=== PATIENT | female | born 1935 | race Two or more races ===

== ENCOUNTER 2024-02-04 19:04 | Inpatient (IN) | payer OTHER, MEDICARE, MEDICAID ==
[~2024-02-04] VITALS: Ht 152.4 cm; Wt 61.0 kg
[2024-02-04] MEDS: CEFEPIME 2GM/50ML NS 50 ML IV ONE (20:21)
[2024-02-04] MEDS: SODIUM CHLORIDE 0.9% 1,000 ML IV ONE (20:22)
[2024-02-04] MEDS: ACETAMINOPHEN IV 1000 MG/100ML (10MG/ML) IV STA (20:23)
[2024-02-04] MEDS: ONDANSETRON HCL 4 MG/2 ML VIAL IV ONE (20:47)
[2024-02-04 20:51] LABS: Basophils # (auto) 0.1 10 ^3/uL (0-0.2); Basophils % (auto) 0.4 % (0.0-2.0); Eosinophils # (auto) 0 10 ^3/uL (0-0.8); Hematocrit 37.1 % (36.0-46.0); Hemoglobin 11.5 g/dL (12.2-16.2); Lymphocytes # (auto) 1.7 10 ^3/uL (0.4-5.4); Lymphocytes % (auto) 11.6 % (10.0-50.0); Mean Corpuscular Hemoglobin 30.3 pg (28.0-32.0); Mean Corpuscular Volume 97.8 fL (80.0-100.0); Monocytes # (auto) 0.8 10 ^3/uL (0-1.3); Monocytes % (auto) 5.9 % (0.0-12.0); Neutrophils # (auto) 11.7 10 ^3/uL (1.6-8.6); Neutrophils % (auto) 82.1 % (37.0-80.0); Nucleated Red Blood Cells % 0.4 %; Platelet Count (auto) 202 10^3/uL (140-450); Red Cell Distribution Width 17.6 % (11.8-14.3); White Blood Cell 14.3 10^3/uL (4.4-10.8)
[2024-02-04 20:57] LABS: Chloride 120 mmol/L (98-107); Potassium 3.5 mmol/L (3.5-5.1); Sodium 154 mmol/L (136-145)
[2024-02-04 20:58] LABS: Anion Gap 13 (5-15); Carbon Dioxide 21 mmol/L (20-31)
[2024-02-04 20:59] LABS: Calcium 7.8 mg/dL (8.7-10.4)
[2024-02-04 21:03] LABS: BUN/Creatinine Ratio 33.7 (10.0-20.0); Glucose 153 mg/dL (74-106)
[2024-02-04 21:11] LABS: Blood Urea Nitrogen 115 mg/dL (9-23)
[2024-02-04 22:01] LABS: Urine Bacteria None Seen /hpf (None Seen)
[2024-02-04 22:18] LABS: Urine Blood TRACE /uL (Negative); Urine Clarity Ex.Turbid (Clear); Urine Color Light-Orange (Yellow); Urine Mucus FEW (None Seen); Urine Protein, UAD 3+ (Negative); Urine Specific Gravity 1.018 (1.001-1.035); Urine Urobilinogen 6 mg/dL (Negative); Urine WBC 49 /hpf (0 - 5); Urine pH 6.5 (5.0-9.0)
[2024-02-04] MEDS ORDERED: ONDANSETRON HCL 4 MG/2 ML VIAL IV PRN (23:45)
[2024-02-04] MEDS ORDERED: NITROGLYCERIN 0.4 MG SL TAB SL PRN (23:45)
[2024-02-04] MEDS ORDERED: ACETAMINOPHEN 325 MG TAB PO PRN (23:45)
[2024-02-04] MEDS ORDERED: MORPHINE SULFATE INJ 2 MG/ml SYRG IV PRN (23:45)
[2024-02-04 23:50] VITALS: PULSE 74; O2SAT 90
[2024-02-05] MEDS: SODIUM CHLORIDE 0.9% 1,000 ML IV ONE
[2024-02-05] MEDS: ENOXAPARIN SOD 100 MG/1 ML SYRINGE SC ONE (01:26)
[2024-02-05 04:36] LABS: Basophils # (auto) 0 10 ^3/uL (0-0.2); Eosinophils # (auto) 0 10 ^3/uL (0-0.8); Eosinophils % (auto) 0.1 % (0.0-7.0); Hemoglobin 11.7 g/dL (12.2-16.2); Lymphocytes # (auto) 2.2 10 ^3/uL (0.4-5.4); Neutrophils # (auto) 13.2 10 ^3/uL (1.6-8.6); Nucleated Red Blood Cells % 0.1 %
[2024-02-05 04:40] LABS: Basophils % (auto) 0.2 % (0.0-2.0); Hematocrit 38.8 % (36.0-46.0); Lymphocytes % (auto) 13.5 % (10.0-50.0); Mean Corpuscular Hemoglobin 30.5 pg (28.0-32.0); Mean Corpuscular Hgb Conc. 30.1 g/dL (32.0-36.0); Mean Corpuscular Volume 101.4 fL (80.0-100.0); Monocytes # (auto) 0.7 10 ^3/uL (0-1.3); Monocytes % (auto) 4.6 % (0.0-12.0); Neutrophils % (auto) 81.6 % (37.0-80.0); Platelet Count (auto) 189 10^3/uL (140-450); Red Blood Cells 3.83 10^6/uL (4.0-5.20); Red Cell Distribution Width 17.6 % (11.8-14.3); White Blood Cell 16.2 10^3/uL (4.4-10.8)
[2024-02-05 04:56] LABS: Potassium 4.5 mmol/L (3.5-5.1)
[2024-02-05 04:57] LABS: Anion Gap 15 (5-15); Carbon Dioxide 25 mmol/L (20-31)
[2024-02-05 04:58] LABS: Calcium 8.9 mg/dL (8.7-10.4)
[2024-02-05 05:02] LABS: BUN/Creatinine Ratio 30.5 (10.0-20.0); Glucose 155 mg/dL (74-106)
[2024-02-05 05:05] LABS: Chloride 135 mmol/L (98-107)
[2024-02-05 05:17] LABS: Blood Urea Nitrogen 121 mg/dL (9-23); Sodium 175 mmol/L (136-145)
[2024-02-05 05:20] VITALS: PULSE 72; RESP 14; O2SAT 93
[2024-02-05] MEDS: D5W 5% 1,000 ML IV SCH ×2 (06:16→12:30)
[2024-02-05 07:30] VITALS: PULSE 73; RESP 12; O2SAT 98
[2024-02-05 10:13] LABS: Magnesium 2.6 mg/dL (1.6-2.6)
[2024-02-05 10:14] LABS: Phosphorus 5.8 mg/dL (2.4-5.1)
[2024-02-05] MEDS: cefTRIAXone 1GM/50ML D5W 50 ML IV SCH (10:20)
[2024-02-05] MEDS: ASPirin 81 mg TAB PO SCH (10:20)
[2024-02-05 13:43] LABS: Creatinine, Urine 58.26 mg/dL (30.0-125.0)
[2024-02-05 13:45] LABS: Protein, Urine 411.4 mg/dL (1-14); Urine Protein/Creatinine Ratio 7.06
[2024-02-05] MEDS: AZITHROMYCIN 500MG/ 250ML 250 ML IV ONE (13:45)
[2024-02-05 17:29] VITALS: BP 102/49; PULSE 71; RESP 16; O2SAT 100
[2024-02-05 20:00] VITALS: PULSE 64
[2024-02-05] MEDS ORDERED: ATORVASTATIN 20 MG TAB PO SCH (22:00)
[2024-02-05] MEDS: ATORVASTATIN 20 MG TAB PO SCH (22:00)
[2024-02-06] VITALS (8 sets, daily range): BP systolic 92–138; BP diastolic 36–75; PULSE 48–98; RESP 17–18; TEMP 96.4–97.8; O2SAT 92–98
[2024-02-06] MEDS: ASPirin 81 mg TAB PO SCH (10:00)
[2024-02-06] MEDS ORDERED: AZITHROMYCIN 500MG/ 250ML 250 ML IV SCH (10:00)
[2024-02-06 17:20] LABS: Potassium 3.9 mmol/L (3.5-5.1)
[2024-02-06 17:21] LABS: Anion Gap 12 (5-15); Calcium 8.6 mg/dL (8.7-10.4); Carbon Dioxide 25 mmol/L (20-31)
[2024-02-06 17:26] LABS: BUN/Creatinine Ratio 34.4 (10.0-20.0); Glucose 117 mg/dL (74-106)
[2024-02-06 17:40] LABS: Chloride 123 mmol/L (98-107); Sodium 160 mmol/L (136-145)
[2024-02-06 17:41] LABS: Blood Urea Nitrogen 111 mg/dL (9-23)
[2024-02-07] VITALS (8 sets, daily range): BP systolic 101–118; BP diastolic 51–69; PULSE 52–79; RESP 14–18; TEMP 97.4–98.2; O2SAT 93–100
[2024-02-07 00:48] LABS: Chloride 122 mmol/L (98-107); Potassium 3.2 mmol/L (3.5-5.1); Sodium 158 mmol/L (136-145)
[2024-02-07 00:49] LABS: Anion Gap 13 (5-15); Carbon Dioxide 23 mmol/L (20-31)
[2024-02-07 00:50] LABS: Calcium 8.3 mg/dL (8.7-10.4)
[2024-02-07 00:54] LABS: BUN/Creatinine Ratio 36.6 (10.0-20.0); Glucose 131 mg/dL (74-106)
[2024-02-07 01:14] LABS: Blood Urea Nitrogen 111 mg/dL (9-23)
[2024-02-07 08:35] LABS: Anion Gap 13 (5-15); Carbon Dioxide 21 mmol/L (20-31); Chloride 120 mmol/L (98-107); Potassium 3.3 mmol/L (3.5-5.1); Sodium 154 mmol/L (136-145)
[2024-02-07 08:36] LABS: Calcium 8.5 mg/dL (8.7-10.4)
[2024-02-07 08:41] LABS: BUN/Creatinine Ratio 30.7 (10.0-20.0); Glucose 127 mg/dL (74-106)
[2024-02-07 09:14] LABS: Blood Urea Nitrogen 83 mg/dL (9-23)
[2024-02-07] MEDS: POTASSIUM EFFERVESENT TAB 25 MEQ PO ONE (09:36)
[2024-02-07 09:37] LABS: Basophils # (auto) 0.1 10 ^3/uL (0-0.2); Basophils % (auto) 0.5 % (0.0-2.0); Eosinophils # (auto) 0 10 ^3/uL (0-0.8); Eosinophils % (auto) 0.3 % (0.0-7.0); Lymphocytes # (auto) 1.5 10 ^3/uL (0.4-5.4); Lymphocytes % (auto) 12.9 % (10.0-50.0); Mean Corpuscular Hgb Conc. 31.4 g/dL (32.0-36.0); Mean Corpuscular Volume 98.8 fL (80.0-100.0); Monocytes # (auto) 0.6 10 ^3/uL (0-1.3); Monocytes % (auto) 4.8 % (0.0-12.0); Neutrophils # (auto) 9.7 10 ^3/uL (1.6-8.6); Neutrophils % (auto) 81.5 % (37.0-80.0); Nucleated Red Blood Cells % 0.4 %; Platelet Count (auto) 152 10^3/uL (140-450); Red Blood Cells 3.24 10^6/uL (4.0-5.20); Red Cell Distribution Width 16.8 % (11.8-14.3); White Blood Cell 11.9 10^3/uL (4.4-10.8)
[2024-02-07 16:21] LABS: Chloride 117 mmol/L (98-107); Potassium 3.8 mmol/L (3.5-5.1)
[2024-02-07 16:22] LABS: Anion Gap 11 (5-15); Carbon Dioxide 20 mmol/L (20-31)
[2024-02-07 16:23] LABS: Calcium 8.4 mg/dL (8.7-10.4)
[2024-02-07 16:27] LABS: BUN/Creatinine Ratio 26.9 (10.0-20.0); Glucose 155 mg/dL (74-106)
[2024-02-07 16:28] LABS: Magnesium 1.8 mg/dL (1.6-2.6)
[2024-02-07 16:41] LABS: Blood Urea Nitrogen 67 mg/dL (9-23); Sodium 148 mmol/L (136-145)
[2024-02-07] MEDS: MEROPENEM 1GM IVPB 50 ML IV ONE (17:53)
[2024-02-07] MEDS ORDERED: MEROPENEM 1GM IVPB 50 ML IV SCH (22:00)
[2024-02-07 23:03] LABS: Chloride 115 mmol/L (98-107); Potassium 3.9 mmol/L (3.5-5.1); Sodium 149 mmol/L (136-145)
[2024-02-07 23:04] LABS: Anion Gap 9 (5-15); Calcium 8.6 mg/dL (8.7-10.4); Carbon Dioxide 25 mmol/L (20-31)
[2024-02-07 23:09] LABS: Glucose 96 mg/dL (74-106)
[2024-02-07 23:22] LABS: Blood Urea Nitrogen 93 mg/dL (9-23)
[2024-02-08] VITALS (8 sets, daily range): BP systolic 86–123; BP diastolic 35–81; PULSE 70–86; RESP 15–18; TEMP 97.8–98.9; O2SAT 92–98
[2024-02-08] MEDS: MEROPENEM 500MG IVPB 50 ML IV SCH (02:22)
[2024-02-08] MEDS ORDERED: TPN PER PHARMACY 0 ML IV SCH (10:00)
[2024-02-08] MEDS ORDERED: DEXTROSE (50%) 50ML SYRG IV SCH (10:15)
[2024-02-08] MEDS: InsuLIN REG 1unit/0.01ml Soln (100units/ml) SC SCH (12:00)
[2024-02-08] MEDS: ACCU-CHEK COMFORT CURVE STRIP VI SCH (12:00)
[2024-02-08 13:52] LABS: INR 1.03 (0.9-1.15); Prothrombin Time 10.9 sec (9.3-11.8)
[2024-02-08] MEDS: LIDOCAINE 1% (LOCAL ANESTH.) PF 5ml SDV ID ONE (15:45)
[2024-02-08] MEDS: D5W 5% 1,000 ML IV SCH (16:41)
[2024-02-08] MEDS: SODIUM CHLOR 0.9% PF (SALINE LOCK) 10ML VIAL/SYR IV SCH (23:24)
[2024-02-08] MEDS: AMINO ACID INFUSION IN D10W 1,000 ML IV ONE (23:24)
[2024-02-09] VITALS (10 sets, daily range): BP systolic 93–115; BP diastolic 46–93; PULSE 67–82; RESP 15–20; TEMP 96.2–98.6; O2SAT 94–99
[2024-02-09 11:34] LABS: Alanine Aminotransferase 23 U/L (7-40); Albumin 2.7 g/dL (3.2-4.8); Alkaline Phosphatase 98 U/L (46-116); Anion Gap 10 (5-15); Aspartate Aminotransferase 33 U/L (13-40); BUN/Creatinine Ratio 34.5 (10.0-20.0); Bilirubin, Direct 0.2 mg/dL (<0.3); Carbon Dioxide 23 mmol/L (20-31); Chloride 110 mmol/L (98-107); Glucose 222 mg/dL (74-106); Magnesium 1.5 mg/dL (1.6-2.6); Potassium 2.9 mmol/L (3.5-5.1); Sodium 143 mmol/L (136-145); Triglycerides 181 mg/dL (< 150)
[2024-02-09 11:35] LABS: Bilirubin, Total 0.4 mg/dL (0.2-1.0); Phosphorus 1.8 mg/dL (2.4-5.1); Total Protein 4.9 g/dL (5.7-8.2)
[2024-02-09 11:36] LABS: Blood Urea Nitrogen 49 mg/dL (9-23)
[2024-02-09 12:22] LABS: Basophils # (auto) 0 10 ^3/uL (0-0.2); Basophils % (auto) 0.2 % (0.0-2.0); Eosinophils # (auto) 0 10 ^3/uL (0-0.8); Eosinophils % (auto) 0.1 % (0.0-7.0); Hematocrit 29.4 % (36.0-46.0); Hemoglobin 9.6 g/dL (12.2-16.2); Lymphocytes # (auto) 0.6 10 ^3/uL (0.4-5.4); Lymphocytes % (auto) 7.6 % (10.0-50.0); Mean Corpuscular Hemoglobin 30.6 pg (28.0-32.0); Mean Corpuscular Hgb Conc. 32.5 g/dL (32.0-36.0); Monocytes # (auto) 0.6 10 ^3/uL (0-1.3); Monocytes % (auto) 7.4 % (0.0-12.0); Neutrophils # (auto) 6.4 10 ^3/uL (1.6-8.6); Neutrophils % (auto) 84.7 % (37.0-80.0); Nucleated Red Blood Cells % 0.1 %; Platelet Count (auto) 123 10^3/uL (140-450); Red Blood Cells 3.13 10^6/uL (4.0-5.20); Red Cell Distribution Width 15.4 % (11.8-14.3); White Blood Cell 7.5 10^3/uL (4.4-10.8)
[2024-02-09] MEDS: POTASSIUM PHOSPHATE 26.4 MEQ in SODIUM CHL 0.9% 100 ML IV ONE (14:00)
[2024-02-09] MEDS: TPN PER PHARMACY IV NR (20:18)
[2024-02-10] VITALS (10 sets, daily range): BP systolic 84–120; BP diastolic 33–55; PULSE 66–93; RESP 16–21; TEMP 96–98.6; O2SAT 92–100
[2024-02-10 07:27] LABS: Basophils # (auto) 0 10 ^3/uL (0-0.2); Basophils % (auto) 0.2 % (0.0-2.0); Eosinophils # (auto) 0 10 ^3/uL (0-0.8); Eosinophils % (auto) 0.1 % (0.0-7.0); Hematocrit 33.3 % (36.0-46.0); Hemoglobin 10.7 g/dL (12.2-16.2); Lymphocytes % (auto) 11.7 % (10.0-50.0); Mean Corpuscular Hemoglobin 30.6 pg (28.0-32.0); Mean Corpuscular Volume 95.8 fL (80.0-100.0); Monocytes # (auto) 0.9 10 ^3/uL (0-1.3); Monocytes % (auto) 10.4 % (0.0-12.0); Neutrophils # (auto) 6.4 10 ^3/uL (1.6-8.6); Neutrophils % (auto) 77.6 % (37.0-80.0); Nucleated Red Blood Cells % 0.1 %; Platelet Count (auto) 125 10^3/uL (140-450); Red Blood Cells 3.48 10^6/uL (4.0-5.20); Red Cell Distribution Width 15.7 % (11.8-14.3); White Blood Cell 8.2 10^3/uL (4.4-10.8)
[2024-02-10 07:53] LABS: Alanine Aminotransferase 20 U/L (7-40); Albumin 2.7 g/dL (3.2-4.8); Alkaline Phosphatase 93 U/L (46-116); Anion Gap 10 (5-15); Aspartate Aminotransferase 30 U/L (13-40); BUN/Creatinine Ratio 36.7 (10.0-20.0); Bilirubin, Total 0.4 mg/dL (0.2-1.0); Blood Urea Nitrogen 40 mg/dL (9-23); Calcium 7.9 mg/dL (8.7-10.4); Carbon Dioxide 23 mmol/L (20-31); Chloride 113 mmol/L (98-107); Glucose 137 mg/dL (74-106); Magnesium 1.6 mg/dL (1.6-2.6); Phosphorus 3.3 mg/dL (2.4-5.1); Potassium 3.6 mmol/L (3.5-5.1); Sodium 146 mmol/L (136-145); Total Protein 4.9 g/dL (5.7-8.2)
[2024-02-10] MEDS: ENOXAPARIN SOD 30 MG/0.3 ML SYRINGE SC SCH (09:54)
[2024-02-10] MEDS: PANTOPRAZOLE 40 MG/10 ML VIAL INJ IV SCH (09:55)
[2024-02-10] MEDS: TPN PER PHARMACY IV NR (20:00)
[2024-02-11] VITALS (8 sets, daily range): BP systolic 98–125; BP diastolic 45–83; PULSE 69–83; RESP 18–20; TEMP 97.8–99.5; O2SAT 20–99
[2024-02-11 07:31] LABS: Alanine Aminotransferase 27 U/L (7-40); Albumin 2.8 g/dL (3.2-4.8); Alkaline Phosphatase 102 U/L (46-116); Anion Gap 10 (5-15); Aspartate Aminotransferase 52 U/L (13-40); BUN/Creatinine Ratio 37.8 (10.0-20.0); Bilirubin, Total 0.4 mg/dL (0.2-1.0); Blood Urea Nitrogen 34 mg/dL (9-23); Carbon Dioxide 20 mmol/L (20-31); Chloride 112 mmol/L (98-107); Glucose 111 mg/dL (74-106); Magnesium 1.9 mg/dL (1.6-2.6); Phosphorus 3.7 mg/dL (2.4-5.1); Potassium 4.8 mmol/L (3.5-5.1); Sodium 142 mmol/L (136-145); Total Protein 5.2 g/dL (5.7-8.2)
[2024-02-11] MEDS: TPN PER PHARMACY IV NR (19:27)
[2024-02-12] VITALS (8 sets, daily range): BP systolic 101–132; BP diastolic 45–75; PULSE 69–93; RESP 17–19; TEMP 79.9–99; O2SAT 93–100
[2024-02-12] MEDS: LINEZOLID 600MG/300ML 300 ML IV SCH (10:01)
[2024-02-12 16:16] LABS: Chloride 107 mmol/L (98-107); Potassium 4.3 mmol/L (3.5-5.1); Sodium 138 mmol/L (136-145)
[2024-02-12 16:19] LABS: Anion Gap 5 (5-15); Calcium 8.3 mg/dL (8.7-10.4); Carbon Dioxide 26 mmol/L (20-31)
[2024-02-12 16:24] LABS: BUN/Creatinine Ratio 54.8 (10.0-20.0); Blood Urea Nitrogen 40 mg/dL (9-23); Glucose 124 mg/dL (74-106)
[2024-02-12 16:25] LABS: Alkaline Phosphatase 101 U/L (46-116)
[2024-02-12 16:26] LABS: Alanine Aminotransferase 45 U/L (7-40); Albumin 2.8 g/dL (3.2-4.8); Aspartate Aminotransferase 68 U/L (13-40); Phosphorus 1.7 mg/dL (2.4-5.1)
[2024-02-12 16:27] LABS: Bilirubin, Total 0.4 mg/dL (0.2-1.0)
[2024-02-12] MEDS: AMINO ACID INFUSION IN D10W 1,000 ML IV SCH (20:54)
[2024-02-13] VITALS (8 sets, daily range): BP systolic 88–116; BP diastolic 35–68; PULSE 68–89; RESP 16–20; TEMP 97–98.1; O2SAT 92–99
[2024-02-13 11:17] LABS: Alanine Aminotransferase 44 U/L (7-40); Albumin 2.5 g/dL (3.2-4.8); Alkaline Phosphatase 96 U/L (46-116); Anion Gap 5 (5-15); Aspartate Aminotransferase 66 U/L (13-40); BUN/Creatinine Ratio 41.8 (10.0-20.0); Bilirubin, Total 0.4 mg/dL (0.2-1.0); Blood Urea Nitrogen 33 mg/dL (9-23); Calcium 7.9 mg/dL (8.7-10.4); Carbon Dioxide 26 mmol/L (20-31); Chloride 101 mmol/L (98-107); Glucose 372 mg/dL (74-106); Potassium 3.5 mmol/L (3.5-5.1); Total Protein 4.6 g/dL (5.7-8.2)
[2024-02-13 11:25] LABS: Sodium 132 mmol/L (136-145)
[2024-02-13] MEDS: ERTAPENEM SOD INJ 1 GM in SODIUM CHL 0.9% 50 ML IV SCH (13:49)
[2024-02-13] MEDS: SODIUM PHOSPHATES 40 MEQ in D5W 5% 250 ML IV ONE (14:04)
[2024-02-13] MEDS: TPN PER PHARMACY IV NR (20:54)
[2024-02-14] VITALS (8 sets, daily range): BP systolic 89–115; BP diastolic 33–64; PULSE 66–90; RESP 18–23; TEMP 97.8–99.3; O2SAT 92–99
[2024-02-14 07:00] LABS: Alanine Aminotransferase 46 U/L (7-40); Albumin 2.7 g/dL (3.2-4.8); Alkaline Phosphatase 98 U/L (46-116); Anion Gap 6 (5-15); Aspartate Aminotransferase 62 U/L (13-40); BUN/Creatinine Ratio 36.6 (10.0-20.0); Blood Urea Nitrogen 26 mg/dL (9-23); Calcium 8.2 mg/dL (8.7-10.4); Carbon Dioxide 27 mmol/L (20-31); Chloride 105 mmol/L (98-107); Glucose 101 mg/dL (74-106); Magnesium 1.6 mg/dL (1.6-2.6); Potassium 3.6 mmol/L (3.5-5.1); Sodium 138 mmol/L (136-145)
[2024-02-14 07:01] LABS: Bilirubin, Total 0.4 mg/dL (0.2-1.0); Phosphorus 3.8 mg/dL (2.4-5.1); Total Protein 4.7 g/dL (5.7-8.2)
[2024-02-14 07:45] LABS: COVID19 ANTIGEN SOFIA FIA NEGATIVE (NEGATIVE)
[2024-02-14] MEDS ORDERED: TPN PER PHARMACY IV NR (20:00)
[2024-02-15 01:00] VITALS: BP 100/41; PULSE 75; RESP 18; TEMP 97.6; O2SAT 99
[2024-02-15 05:00] VITALS: BP 119/44; PULSE 67; RESP 20; TEMP 97.5; O2SAT 99
[2024-02-15 08:00] VITALS: PULSE 73; RESP 19; O2SAT 99
[2024-02-15 08:43] LABS: Alanine Aminotransferase 41 U/L (7-40); Albumin 2.6 g/dL (3.2-4.8); Alkaline Phosphatase 102 U/L (46-116); Anion Gap 5 (5-15); Aspartate Aminotransferase 54 U/L (13-40); BUN/Creatinine Ratio 28.4 (10.0-20.0); Blood Urea Nitrogen 19 mg/dL (9-23); Calcium 8.4 mg/dL (8.7-10.4); Carbon Dioxide 26 mmol/L (20-31); Chloride 106 mmol/L (98-107); Glucose 93 mg/dL (74-106); Magnesium 1.7 mg/dL (1.6-2.6); Potassium 3.6 mmol/L (3.5-5.1); Sodium 137 mmol/L (136-145); Triglycerides 178 mg/dL (< 150)
[2024-02-15 08:44] LABS: Bilirubin, Total 0.4 mg/dL (0.2-1.0); Total Protein 4.7 g/dL (5.7-8.2)
[2024-02-15] MEDS: D5W/ SOD CHL 0.9%/KCL 20MEQ 1,000 ML IV SCH (11:14)
[2024-02-15 11:36] VITALS: BP 125/70; PULSE 52; RESP 24; TEMP 98.3; O2SAT 84
== END 2024-02-15 13:00 | DRG 871 ==
LOC: EDBD 19:04 → ER 19:04 → TELE 23:57 → TELE-CENTR 02-05 17:22
PROVIDERS: ADMIT Nurse Practitioner; ATTEND Family Medicine
PROC: 02HV33Z Insertion of Infusion Device into Superior Vena Cava, Percutaneous Approach (ICD-10-PCS; principal; 2024-02-08)
PROC: B548ZZA Ultrasonography of Superior Vena Cava, Guidance (ICD-10-PCS; 2024-02-08)
DX: A41.59 Other Gram-negative sepsis (principal); E43 Unspecified severe protein-calorie malnutrition; G93.41 Metabolic encephalopathy; J18.9 Pneumonia, unspecified organism; R65.21 Severe sepsis with septic shock; I21.A1 Myocardial infarction type 2; N39.0 Urinary tract infection, site not specified; E87.0 Hyperosmolality and hypernatremia; R64 Cachexia; Z16.12 Extended spectrum beta lactamase (ESBL) resistance; N17.9 Acute kidney failure, unspecified; E86.0 Dehydration; I10 Essential (primary) hypertension; Z66 Do not resuscitate; B96.20 Unspecified Escherichia coli [E. coli] as the cause of diseases classified elsewhere; D50.9 Iron deficiency anemia, unspecified; E87.6 Hypokalemia; E88.09 Other disorders of plasma-protein metabolism, not elsewhere classified; F03.90 Unspecified dementia, unspecified severity, without behavioral disturbance, psychotic disturbance, mood disturbance, and anxiety; L89.150 Pressure ulcer of sacral region, unstageable; E87.8 Other disorders of electrolyte and fluid balance, not elsewhere classified; R62.7 Adult failure to thrive; B95.2 Enterococcus as the cause of diseases classified elsewhere; L89.620 Pressure ulcer of left heel, unstageable; Z51.5 Encounter for palliative care; Z68.26 Body mass index [BMI] 26.0-26.9, adult
CPT/HCPCS: 36415; 36569; 70450; 71045; 76775; 76937; 80048; 80053; 80076; 81001; 82550; 82570; 82962; 83605; 83735; 83880; 83930; 83935; 84100; 84156; 84295; 84300; 84478; 84484; 85025; 85610; 85730; 87040; 87077; 87086; 87088; 87186; 87205; 87426; 92507; 92610; 93005; 93306; 97110; 97163; 97530; 99291; G0378; J0131; J0692; J1335; J1815; J2185; J2405; J2470; J7060; J7131